=== PATIENT | male | born 1960 | race Caucasian/White ===

== ENCOUNTER 2023-04-21 13:24 | Inpatient (IN) | payer OTHER ==
[2023-04-21] MEDS ORDERED: FOLIC ACID INJECTION - 1 MG, THIAMINE HCL 100 MG, MULTIVIT INJECTION ADULT 10 ML in SOD... IVPB ONE (13:51)
[2023-04-21 13:53] VITALS: BMI 24.0
[2023-04-21] MEDS ORDERED: diazePAM CARPU-JECT 10 MG/2 ML DISP.SYRIN IVPUSH ONE ×2 (14:02→14:54)
[2023-04-21] MEDS ORDERED: FAMOTIDINE 20 MG/50 ML IVPB 20 MG/50 ML MG IVPB ONE ×2 (14:02→14:14)
[2023-04-21] MEDS ORDERED: ONDANSETRON 4 MG/2 ML VIAL IVPUSH ONE (14:02)
[2023-04-21] MEDS ORDERED: SODIUM CHLORIDE 0.9% 500 ML INFUS.BAG IV ONE (14:02)
[2023-04-21] MEDS ORDERED: ACETAMINOPHEN 1000 MG/100 ML BAG IVPB ONE (14:07)
[2023-04-21] MEDS ORDERED: diazePAM CARPU-JECT 10 MG/2 ML DISP.SYRIN ONE ×2 (14:13→14:54)
[2023-04-21] MEDS ORDERED: ACETAMINOPHEN INJECTION 100 ML IVPB ONE (14:14)
[2023-04-21] MEDS ORDERED: ONDANSETRON 4 MG/2 ML VIAL ONE (14:14)
[2023-04-21 14:20] LABS: BASO % 0.6 % (0-2.0); HEMATOCRIT 40.6 % (35.4-49); HEMOGLOBIN 13.6 GM/dL (11.7-16.9); LYMPH % 11.6 % (8-40); MCH 31.7 pg (25.7-33.7); MCHC 33.5 g/dl (32.0-35.9); MEAN CELL VOLUME 94.8 fl (80-96); MEAN PLT VOLUME 10.7 fl (7.5-11.1); MONO % 4.4 % (3.8-10.2); NEUT % 83.4 % (42.8-82.8); PLATELET COUNT 129 10^3/uL (134-434); RBC 4.28 M/mm3 (4.00-5.60); RDW 14.1 % (11.9-15.9); WHITE BLOOD COUNT 8.7 K/mm3 (4.0-10.0)
[2023-04-21 14:27] LABS: INR 1.07 (0.83-1.09); PROTHROMBIN TIME (PATIENT) 12.4 SEC (9.7-13.0)
[2023-04-21 14:30] LABS: ACTIVATED PTT 30.2 SECONDS (25.2-36.5)
[2023-04-21 14:54] LABS: POTASSIUM 3.6 mmol/L (3.5-5.1)
[2023-04-21] MEDS ORDERED: THIAMINE HCL 200 MG/2 ML VIAL IVPB ONE (14:54)
[2023-04-21] MEDS ORDERED: THIAMINE HCL 200 MG/2 ML VIAL ONE (14:55)
[2023-04-21 14:56] LABS: ALBUMIN 3.9 g/dl (3.4-5.0); CALCIUM 9.6 mg/dL (8.5-10.1)
[2023-04-21 14:57] LABS: MAGNESIUM 1.2 mg/dL (1.8-2.4)
[2023-04-21] MEDS ORDERED: MAGNESIUM SULF 50% (8.12 MEQ/2 ML-1 GM VIAL) IVPB ONE ×2 (14:58→20:00)
[2023-04-21 14:59] LABS: CREATININE 0.8 mg/dL (0.55-1.3)
[2023-04-21 15:01] LABS: BILIRUBIN,TOTAL 0.6 mg/dL (0.2-1)
[2023-04-21] MEDS ORDERED: MAGNESIUM SULFATE IN WATER 2 GM/50 ML IVPB IVPB ONE (15:05)
[2023-04-21 15:16] LABS: EPI CELLS 8 /uL (0-25.1); HYALINE CASTS 1 /uL (0-3.1); PH,URINE 7.5 (5.0-8.0); URINE APPEARANCE CLEAR; URINE BACTERIA 3 /uL (0-1359); URINE BILIRUBIN NEGATIVE (NEGATIVE); URINE COLOR DK YELLOW; URINE GLUCOSE (UA) NEGATIVE (NEGATIVE); URINE KETONE 2+ (NEGATIVE); URINE LEUK ESTERASE NEGATIVE (NEGATIVE); URINE NITRITE NEGATIVE (NEGATIVE); URINE PROTEIN 1+ (NEGATIVE); URINE WBC 6 /uL (0-25.8)
[2023-04-21 15:19] LABS: URINE RBC 39.8 /uL (0-23.9)
[2023-04-21] MEDS ORDERED: LORazepam 1 MG TABLET PO PRN (16:55)
[2023-04-21] MEDS ORDERED: ONDANSETRON 4 MG/2 ML VIAL IVPUSH PRN (16:57)
[2023-04-21] MEDS ORDERED: LACTATED RINGERS SOLUTION 1,000 ML IV SCH (17:00)
[2023-04-21] MEDS ORDERED: LORazepam 1 MG TABLET ONE (17:43)
[2023-04-21] MEDS: LORazepam 1 MG TABLET PO SCH ×2 (17:55→23:28)
[2023-04-22] MEDS: LORazepam 1 MG TABLET PO SCH ×2 (05:14→11:30)
[2023-04-22 08:32] LABS: BASO % 0.7 % (0-2.0); EOS % 1.7 % (0-4.5); HEMOGLOBIN 12.9 GM/dL (11.7-16.9); LYMPH % 27.9 % (8-40); MCH 31.7 pg (25.7-33.7); MEAN CELL VOLUME 96.1 fl (80-96); MONO % 5.6 % (3.8-10.2); NEUT % 64.1 % (42.8-82.8); PLATELET COUNT 105 10^3/uL (134-434); RBC 4.06 M/mm3 (4.00-5.60); RDW 14.2 % (11.9-15.9); WHITE BLOOD COUNT 7.4 K/mm3 (4.0-10.0)
[2023-04-22 08:49] LABS: POTASSIUM 3.8 mmol/L (3.5-5.1)
[2023-04-22 08:53] LABS: ALBUMIN 3.1 g/dl (3.4-5.0); BLOOD UREA NITROGEN 10.8 mg/dL (7-18); CALCIUM 8.3 mg/dL (8.5-10.1)
[2023-04-22 08:54] LABS: MAGNESIUM 2.3 mg/dL (1.8-2.4)
[2023-04-22 08:56] LABS: CREATININE 0.7 mg/dL (0.55-1.3); PHOSPHOROUS 2.9 mg/dL (2.5-4.9)
[2023-04-22 08:58] LABS: BILIRUBIN,TOTAL 0.9 mg/dL (0.2-1); TOT PROT 6.8 g/dl (6.4-8.2)
[2023-04-22 09:14] VITALS: TEMP 98.1
[2023-04-22] MEDS ORDERED: THIAMINE HCL 100 MG TABLET (FP) PO SCH (10:00)
[2023-04-22] MEDS ORDERED: FOLIC ACID 1 MG TABLET (FP) PO SCH (10:00)
[2023-04-22] MEDS ORDERED: ENOXAPARIN NA (PORCINE) 40 MG/0.4 ML DISP.SYRIN SQ SCH (10:00)
[2023-04-22 14:30] VITALS: BP 121/83; PULSE 98; RESP 18
[2023-04-23] MEDS ORDERED: LORazepam 1 MG TABLET PO SCH (05:00)
[2023-04-24] MEDS ORDERED: LORazepam 0.5 MG TABLET PO PRN
[2023-04-24] MEDS ORDERED: LORazepam 0.5 MG TABLET PO SCH (05:00)
[2023-04-25] MEDS ORDERED: LORazepam 0.5 MG TABLET PO ONE (05:00)
== END 2023-04-22 14:34 | disposition other institution (70) | DRG 775 ==
LOC: JER 13:24 → JERBED 15:23 → J6S 18:51
PROVIDERS: ADMIT Internal Medicine; ATTEND Internal Medicine
DX: F10.230 Alcohol dependence with withdrawal, uncomplicated (principal); I10 Essential (primary) hypertension; K76.0 Fatty (change of) liver, not elsewhere classified; E83.42 Hypomagnesemia; F17.210 Nicotine dependence, cigarettes, uncomplicated; D69.6 Thrombocytopenia, unspecified
CPT/HCPCS: 0241U-QW; 36415; 71045-TC-FY; 80053; 81003; 82962; 83690; 83735; 84100; 85025; 85610; 85730; 86780; 86850; 86900; 86901; 87086; 93005; 93010; 99285-25; Q0162

== ENCOUNTER 2023-04-22 14:50 | Inpatient (IN) | payer OTHER ==
[2023-04-22 15:17] VITALS: BMI 25.4
[2023-04-22] MEDS ORDERED: MAGNESIUM HYDROX 2400MG/30ML ORAL SUSPENSION 30 ML CUP PO PRN (17:11)
[2023-04-22] MEDS ORDERED: BENZONATATE 200 MG CAPSULE PO PRN (17:11)
[2023-04-22] MEDS ORDERED: guaiFENesin 600 MG TABLET.ER (FP) PO PRN (17:11)
[2023-04-22] MEDS ORDERED: NALOXONE HCL (KLOXXADO) 8 MG SPRAY NS PRN (17:11)
[2023-04-22] MEDS ORDERED: MAG HYDROX/AL HYDROX/SIMETH 30 ML UNIT-DOSE CUP PO PRN (17:11)
[2023-04-22] MEDS ORDERED: IBUPROFEN 400 MG TABLET (FP) PO PRN (17:11)
[2023-04-22] MEDS ORDERED: BENZOCAINE/MENTHOL (CHLORASEPTIC ) LOZENGE MM PRN (17:11)
[2023-04-22] MEDS ORDERED: ONDANSETRON *ODT* 4 MG TABLET SL PRN (17:11)
[2023-04-22] MEDS ORDERED: LOPERAMIDE HCL 2 MG CAPSULE PO PRN (17:11)
[2023-04-22] MEDS ORDERED: POLYETHYLENE GLYCOL (HEALTHYLAX) 3350 17 GM PACKET PO PRN (17:11)
[2023-04-22] MEDS ORDERED: IBUPROFEN 600 MG TABLET (FP) PO PRN (17:11)
[2023-04-22] MEDS ORDERED: ACETAMINOPHEN 325 MG TABLET (FP) PO PRN (17:11)
[2023-04-22] MEDS ORDERED: BISMUTH SUBSALICYLATE 524 MG/30 ML PO PRN (17:11)
[2023-04-22] MEDS ORDERED: DICYCLOMINE HCL 10 MG CAPSULE PO PRN (17:11)
[2023-04-22] MEDS ORDERED: NALOXONE HCL 0.4 MG/ML VIAL IM PRN (17:11)
[2023-04-22] MEDS ORDERED: LORazepam 1 MG TABLET PO PRN (17:11)
[2023-04-22] MEDS ORDERED: NICOTINE 10 MG CARTRIDGE (INHALER) IH PRN (17:11)
[2023-04-22] MEDS: hydrOXYzine PAMOATE 25 MG CAPSULE (FP) PO PRN (17:59)
[2023-04-22] MEDS: METHOCARBAMOL 500 MG TABLET PO PRN (17:59)
[2023-04-22] MEDS: MELATONIN 5 MG TABLETS PO SCH (22:15)
[2023-04-22] MEDS: THIAMINE HCL 100 MG TABLET (FP) PO SCH (22:15)
[2023-04-22] MEDS: LORazepam 2 MG TABLET PO SCH (22:17)
[2023-04-23] MEDS: LORazepam 2 MG TABLET PO SCH ×4 (05:42→22:19)
[2023-04-23] MEDS: PRENATAL VITAMINS W/ FOLIC ACID TABLET (FP) PO SCH (10:13)
[2023-04-23] MEDS: LOSARTAN POTASSIUM 25 MG TABLET PO SCH (10:13)
[2023-04-23] MEDS: amLODIPine BESYLATE 10 MG TABLET (FP) PO SCH (10:13)
[2023-04-23] MEDS: PANTOPRAZOLE 40 MG TABLET PO SCH (10:13)
[2023-04-23] MEDS: hydrOXYzine PAMOATE 25 MG CAPSULE (FP) PO PRN ×2 (10:14→22:19)
[2023-04-23] MEDS: METHOCARBAMOL 500 MG TABLET PO PRN (10:14)
[2023-04-23 10:57] LABS: HEMOGLOBIN 12.2 GM/dL (11.7-16.9); MCH 31.7 pg (25.7-33.7); MEAN PLT VOLUME 11.4 fl (7.5-11.1); PLATELET COUNT 88 10^3/uL (134-434); RBC 3.86 M/mm3 (4.00-5.60); RDW 14.2 % (11.9-15.9)
[2023-04-23 10:58] LABS: POTASSIUM 3.7 mmol/L (3.5-5.1)
[2023-04-23 11:07] LABS: BLOOD UREA NITROGEN 12.3 mg/dL (7-18)
[2023-04-23 11:08] LABS: CALCIUM 8.8 mg/dL (8.5-10.1)
[2023-04-23 11:12] LABS: CREATININE 0.7 mg/dL (0.55-1.3)
[2023-04-23 11:14] LABS: BILIRUBIN,TOTAL 0.4 mg/dL (0.2-1); TOT PROT 6.4 g/dl (6.4-8.2)
[2023-04-23] MEDS: MELATONIN 5 MG TABLETS PO SCH (22:19)
[2023-04-23] MEDS: THIAMINE HCL 100 MG TABLET (FP) PO SCH (22:19)
[2023-04-24] MEDS: LORazepam 1 MG TABLET PO SCH ×4 (05:30→22:56)
[2023-04-24] MEDS: PANTOPRAZOLE 40 MG TABLET PO SCH (10:22)
[2023-04-24] MEDS: amLODIPine BESYLATE 10 MG TABLET (FP) PO SCH (10:23)
[2023-04-24] MEDS: LOSARTAN POTASSIUM 25 MG TABLET PO SCH (10:23)
[2023-04-24] MEDS: PRENATAL VITAMINS W/ FOLIC ACID TABLET (FP) PO SCH (10:23)
[2023-04-24] MEDS: METHOCARBAMOL 500 MG TABLET PO PRN (22:56)
[2023-04-24] MEDS: THIAMINE HCL 100 MG TABLET (FP) PO SCH (22:56)
[2023-04-24] MEDS: MELATONIN 5 MG TABLETS PO SCH (22:56)
[2023-04-25] MEDS ORDERED: LORazepam 0.5 MG TABLET PO PRN
[2023-04-25] MEDS: LORazepam 0.5 MG TABLET PO SCH ×4 (05:57→22:09)
[2023-04-25] MEDS: amLODIPine BESYLATE 10 MG TABLET (FP) PO SCH (10:51)
[2023-04-25] MEDS: PRENATAL VITAMINS W/ FOLIC ACID TABLET (FP) PO SCH (10:51)
[2023-04-25] MEDS: PANTOPRAZOLE 40 MG TABLET PO SCH (10:51)
[2023-04-25] MEDS: LOSARTAN POTASSIUM 25 MG TABLET PO SCH (10:52)
[2023-04-25] MEDS: LACTULOSE 20 GM/30 ML UDC (FOR ORAL USE ONLY) PO SCH ×3 (14:00→22:09)
[2023-04-25] MEDS: THIAMINE HCL 100 MG TABLET (FP) PO SCH (22:09)
[2023-04-25] MEDS: MELATONIN 5 MG TABLETS PO SCH (22:09)
[2023-04-26] MEDS ORDERED: LORazepam 0.5 MG TABLET PO ONE (05:00)
[2023-04-26 09:58] VITALS: BP 110/69; PULSE 90; RESP 18; TEMP 97.7
== END 2023-04-26 11:27 | disposition home or self-care (01) | DRG 775 ==
LOC: YASAS 14:50 → Y6N 15:48
PROVIDERS: ADMIT Allergy & Immunology; ATTEND Surgery
PROC: HZ2ZZZZ Detoxification Services for Substance Abuse Treatment (ICD-10-PCS; principal; 2023-04-22)
DX: F10.230 Alcohol dependence with withdrawal, uncomplicated (principal); F17.200 Nicotine dependence, unspecified, uncomplicated; F41.9 Anxiety disorder, unspecified; I10 Essential (primary) hypertension; K70.0 Alcoholic fatty liver; K21.9 Gastro-esophageal reflux disease without esophagitis; R79.89 Other specified abnormal findings of blood chemistry; R76.11 Nonspecific reaction to tuberculin skin test without active tuberculosis; Z28.310 Unvaccinated for COVID-19; Z28.9 Immunization not carried out for unspecified reason
CPT/HCPCS: 36415; 80053; 82140; 85027; 86780; 87635

== ENCOUNTER 2023-09-15 14:54 | Inpatient (IN) | payer OTHER ==
[2023-09-15 15:47] VITALS: BMI 25.0
[2023-09-15] MEDS ORDERED: TRIMETHOBENZAMIDE HCL 200MG/2ML INJ IM ONE ×2 (18:08→18:31)
[2023-09-15] MEDS ORDERED: LOPERAMIDE HCL 2 MG CAPSULE PO PRN (18:22)
[2023-09-15] MEDS ORDERED: ONDANSETRON *ODT* 4 MG TABLET SL PRN (18:22)
[2023-09-15] MEDS ORDERED: MAG HYDROX/AL HYDROX/SIMETH 30 ML UNIT-DOSE CUP PO PRN (18:22)
[2023-09-15] MEDS ORDERED: chlordiazePOXIDE HCL 25 MG CAPSULE PO PRN (18:22)
[2023-09-15] MEDS ORDERED: BISMUTH SUBSALICYLATE 524 MG/30 ML PO PRN (18:22)
[2023-09-15] MEDS ORDERED: guaiFENesin 600 MG TABLET.ER (FP) PO PRN (18:22)
[2023-09-15] MEDS ORDERED: DICYCLOMINE HCL 10 MG CAPSULE PO PRN (18:22)
[2023-09-15] MEDS ORDERED: ACETAMINOPHEN 325 MG TABLET (FP) PO PRN (18:22)
[2023-09-15] MEDS ORDERED: IBUPROFEN 400 MG TABLET (FP) PO PRN (18:22)
[2023-09-15] MEDS ORDERED: MAGNESIUM HYDROX 2400MG/30ML ORAL SUSPENSION 30 ML CUP PO PRN (18:22)
[2023-09-15] MEDS ORDERED: BENZONATATE 200 MG CAPSULE PO PRN (18:22)
[2023-09-15] MEDS ORDERED: POLYETHYLENE GLYCOL (HEALTHYLAX) 3350 17 GM PACKET PO PRN (18:22)
[2023-09-15] MEDS ORDERED: P-EPHED 60MG/TRIPROLIDI 2.5MG TABLET PO PRN (18:22)
[2023-09-15] MEDS ORDERED: BENZOCAINE/MENTHOL (CHLORASEPTIC ) LOZENGE MM PRN (18:22)
[2023-09-15] MEDS ORDERED: METOPROLOL TARTRATE 50 MG TABLET (FP) PO ONE (18:24)
[2023-09-15] MEDS ORDERED: METOPROLOL TARTRATE 25 MG TABLET (FP) PO ONE (18:24)
[2023-09-15] MEDS ORDERED: LORazepam 2 MG/ML SDV VIAL IM ONE (18:45)
[2023-09-15] MEDS ORDERED: METOPROLOL TARTRATE 25 MG TABLET (FP) ONE (18:54)
[2023-09-15] MEDS: chlordiazePOXIDE HCL 25 MG CAPSULE PO SCH (22:35)
[2023-09-15] MEDS: MELATONIN 5 MG TABLETS PO SCH (22:35)
[2023-09-15] MEDS: THIAMINE HCL 100 MG TABLET (FP) PO SCH (22:35)
[2023-09-16] MEDS: chlordiazePOXIDE HCL 25 MG CAPSULE PO SCH ×4 (05:28→22:05)
[2023-09-16 10:22] LABS: HEMATOCRIT 36.7 % (35.4-49); HEMOGLOBIN 12.4 GM/dL (11.7-16.9); MCH 32.6 pg (25.7-33.7); MCHC 33.8 g/dl (32.0-35.9); MEAN CELL VOLUME 96.3 fl (80-96); PLATELET COUNT 187 10^3/uL (134-434); RBC 3.81 M/mm3 (4.00-5.60); RDW 16.2 % (11.9-15.9); WHITE BLOOD COUNT 5.2 K/mm3 (4.0-10.0)
[2023-09-16] MEDS: PRENATAL VITAMINS W/ FOLIC ACID TABLET (FP) PO SCH (10:25)
[2023-09-16 11:02] LABS: BLOOD UREA NITROGEN 9.7 mg/dL (7-18); CALCIUM 8.9 mg/dL (8.5-10.1); CHLORIDE 107 mmol/L (98-107); CO2 19 mmol/L (21-32); CREATININE 0.4 mg/dL (0.55-1.3); GLUCOSE,RANDOM 72 mg/dL (74-106); SODIUM 138 mmol/L (136-145)
[2023-09-16 11:11] LABS: ALBUMIN 3.1 g/dl (3.4-5.0)
[2023-09-16 11:20] LABS: ALK PHOS 52 U/L (45-117); BILIRUBIN,TOTAL 0.5 mg/dL (0.2-1); SGOT/AST 68 U/L (15-37); SGPT/ALT 85 U/L (13-61); TOT PROT 6.6 g/dl (6.4-8.2)
[2023-09-16] MEDS: THIAMINE HCL 100 MG TABLET (FP) PO SCH (22:05)
[2023-09-16] MEDS: MELATONIN 5 MG TABLETS PO SCH (22:06)
[2023-09-17] MEDS: chlordiazePOXIDE HCL 25 MG CAPSULE PO SCH ×4 (05:31→22:07)
[2023-09-17] MEDS: FAMOTIDINE 20 MG TABLET PO SCH (10:33)
[2023-09-17] MEDS: PRENATAL VITAMINS W/ FOLIC ACID TABLET (FP) PO SCH (10:33)
[2023-09-17] MEDS: LOSARTAN POTASSIUM 25 MG TABLET PO SCH (10:33)
[2023-09-17] MEDS: amLODIPine BESYLATE 10 MG TABLET (FP) PO SCH (10:33)
[2023-09-17] MEDS: THIAMINE HCL 100 MG TABLET (FP) PO SCH (22:07)
[2023-09-17] MEDS: MELATONIN 5 MG TABLETS PO SCH (22:07)
[2023-09-18] MEDS ORDERED: chlordiazePOXIDE HCL 10 MG CAPSULE PO PRN
[2023-09-18] MEDS: chlordiazePOXIDE HCL 10 MG CAPSULE PO SCH ×4 (05:57→22:00)
[2023-09-18] MEDS: FAMOTIDINE 20 MG TABLET PO SCH (10:25)
[2023-09-18] MEDS: PRENATAL VITAMINS W/ FOLIC ACID TABLET (FP) PO SCH (10:25)
[2023-09-18] MEDS: amLODIPine BESYLATE 10 MG TABLET (FP) PO SCH (10:25)
[2023-09-18] MEDS: LOSARTAN POTASSIUM 25 MG TABLET PO SCH (10:27)
[2023-09-18] MEDS: MELATONIN 5 MG TABLETS PO SCH (21:59)
[2023-09-18] MEDS: THIAMINE HCL 100 MG TABLET (FP) PO SCH (22:00)
[2023-09-18] MEDS: METHOCARBAMOL 500 MG TABLET PO PRN (22:02)
[2023-09-19] MEDS: chlordiazePOXIDE HCL 10 MG CAPSULE PO SCH ×2 (05:14→17:38)
[2023-09-19] MEDS: PRENATAL VITAMINS W/ FOLIC ACID TABLET (FP) PO SCH (10:26)
[2023-09-19] MEDS: amLODIPine BESYLATE 10 MG TABLET (FP) PO SCH (10:26)
[2023-09-19] MEDS: LOSARTAN POTASSIUM 25 MG TABLET PO SCH (10:26)
[2023-09-19] MEDS: FAMOTIDINE 20 MG TABLET PO SCH (10:26)
[2023-09-19] MEDS: THIAMINE HCL 100 MG TABLET (FP) PO SCH (21:13)
[2023-09-19] MEDS: MELATONIN 5 MG TABLETS PO SCH (21:13)
[2023-09-19] MEDS: METHOCARBAMOL 500 MG TABLET PO PRN (21:13)
[2023-09-20] MEDS ORDERED: chlordiazePOXIDE HCL 10 MG CAPSULE PO ONE (05:00)
[2023-09-20 09:17] VITALS: BP 111/71; PULSE 75; RESP 16; TEMP 98.3
[2023-09-20] MEDS: LOSARTAN POTASSIUM 25 MG TABLET PO SCH (09:29)
[2023-09-20] MEDS: FAMOTIDINE 20 MG TABLET PO SCH (09:29)
[2023-09-20] MEDS: amLODIPine BESYLATE 10 MG TABLET (FP) PO SCH (09:29)
[2023-09-20] MEDS: PRENATAL VITAMINS W/ FOLIC ACID TABLET (FP) PO SCH (09:30)
[2023-09-20 10:43] LABS: POTASSIUM 4.6 mmol/L (3.5-5.1)
[2023-09-20 10:45] LABS: CALCIUM 8.8 mg/dL (8.5-10.1)
[2023-09-20 10:46] LABS: BASO % 0.7 % (0-2.0); BLOOD UREA NITROGEN 18.7 mg/dL (7-18); HEMATOCRIT 36.8 % (35.4-49); HEMOGLOBIN 12.1 GM/dL (11.7-16.9); LYMPH % 29.6 % (8-40); MCH 32.5 pg (25.7-33.7); MEAN CELL VOLUME 98.5 fl (80-96); MEAN PLT VOLUME 10.4 fl (7.5-11.1); MONO % 11.7 % (3.8-10.2); PLATELET COUNT 185 10^3/uL (134-434); RBC 3.74 M/mm3 (4.00-5.60); RDW 15.9 % (11.9-15.9); WHITE BLOOD COUNT 6.9 K/mm3 (4.0-10.0)
[2023-09-20 10:49] LABS: CREATININE 0.8 mg/dL (0.55-1.3)
== END 2023-09-20 11:02 | disposition other institution (70) | DRG 775 ==
LOC: YASAS 14:54 → Y3N 19:34
PROVIDERS: ADMIT Allergy & Immunology; ATTEND Surgery
PROC: HZ2ZZZZ Detoxification Services for Substance Abuse Treatment (ICD-10-PCS; principal; 2023-09-15)
DX: F10.230 Alcohol dependence with withdrawal, uncomplicated (principal); F17.210 Nicotine dependence, cigarettes, uncomplicated; I10 Essential (primary) hypertension; K21.9 Gastro-esophageal reflux disease without esophagitis; R74.01 Elevation of levels of liver transaminase levels; Z87.19 Personal history of other diseases of the digestive system; Z28.310 Unvaccinated for COVID-19; Z28.9 Immunization not carried out for unspecified reason
CPT/HCPCS: 36415; 80048; 80053; 80307; 85025; 85027; 86780; 87635

== ENCOUNTER 2024-02-29 12:55 | Inpatient (IN) | payer OTHER ==
[2024-02-29 14:34] VITALS: BMI 25.7
[2024-02-29] MEDS ORDERED: POLYETHYLENE GLYCOL (HEALTHYLAX) 3350 17 GM PACKET PO PRN (15:41)
[2024-02-29] MEDS ORDERED: IBUPROFEN 400 MG TABLET (FP) PO PRN (15:41)
[2024-02-29] MEDS ORDERED: BISMUTH SUBSALICYLATE 262 MG/15 ML BTL PO PRN (15:41)
[2024-02-29] MEDS ORDERED: MAGNESIUM HYDROX 2400MG/30ML ORAL SUSPENSION 30 ML CUP PO PRN (15:41)
[2024-02-29] MEDS ORDERED: LOPERAMIDE HCL 2 MG CAPSULE PO PRN (15:41)
[2024-02-29] MEDS ORDERED: guaiFENesin 600 MG TABLET.ER (FP) PO PRN (15:41)
[2024-02-29] MEDS ORDERED: IBUPROFEN 600 MG TABLET (FP) PO PRN (15:41)
[2024-02-29] MEDS ORDERED: NALOXONE HCL 0.4 MG/ML VIAL IM PRN (15:41)
[2024-02-29] MEDS ORDERED: DICYCLOMINE HCL 10 MG CAPSULE PO PRN (15:41)
[2024-02-29] MEDS ORDERED: MAG HYDROX/AL HYDROX/SIMETH 30 ML UNIT-DOSE CUP PO PRN (15:41)
[2024-02-29] MEDS ORDERED: NALOXONE HCL (KLOXXADO) 8 MG SPRAY NS PRN (15:41)
[2024-02-29] MEDS ORDERED: ACETAMINOPHEN 325 MG TABLET (FP) PO PRN (15:41)
[2024-02-29] MEDS ORDERED: hydrOXYzine PAMOATE 25 MG CAPSULE (FP) PO PRN (15:41)
[2024-02-29] MEDS ORDERED: BENZOCAINE/MENTHOL (CHLORASEPTIC ) LOZENGE MM PRN (15:41)
[2024-02-29] MEDS ORDERED: ONDANSETRON *ODT* 4 MG TABLET SL PRN (15:41)
[2024-02-29] MEDS ORDERED: BENZONATATE 200 MG CAPSULE PO PRN (15:41)
[2024-02-29] MEDS: LORazepam 2 MG TABLET PO SCH (18:16)
[2024-02-29] MEDS: LORazepam 1 MG TABLET PO PRN (18:16)
[2024-02-29] MEDS: PRENATAL VITAMINS W/ FOLIC ACID TABLET (FP) PO SCH (18:16)
[2024-02-29] MEDS: THIAMINE 100 MG TABLET PO SCH (22:09)
[2024-02-29] MEDS: MELATONIN 5 MG TABLETS PO SCH (22:09)
[2024-02-29] MEDS: amLODIPine BESYLATE 10 MG TABLET (FP) PO SCH (22:40)
[2024-03-01] MEDS: FAMOTIDINE 20 MG TABLET PO SCH (10:07)
[2024-03-01] MEDS: LOSARTAN POTASSIUM 25 MG TABLET PO SCH (10:09)
[2024-03-01 11:51] LABS: CHLORIDE 101 mmol/L (98-107); POTASSIUM 3.9 mmol/L (3.5-5.1); SODIUM 137 mmol/L (136-145)
[2024-03-01 11:54] LABS: ALBUMIN 3.5 g/dl (3.4-5.0); ANION GAP 8 mmol/L (4-13); BLOOD UREA NITROGEN 20.1 mg/dL (7-18); CALCIUM 9.2 mg/dL (8.5-10.1); CO2 28 mmol/L (21-32); GLUCOSE,RANDOM 98 mg/dL (74-106)
[2024-03-01 11:57] LABS: CREATININE 0.8 mg/dL (0.55-1.3); HEMATOCRIT 41.4 % (35.4-49); HEMOGLOBIN 14.1 GM/dL (11.7-16.9); MCH 31.7 pg (25.7-33.7); MEAN CELL VOLUME 93.1 fl (80-96); MEAN PLT VOLUME 10.5 fl (7.5-11.1); PLATELET COUNT 146 10^3/uL (134-434); RBC 4.44 M/mm3 (4.00-5.60); RDW 15.3 % (11.9-15.9); SGOT/AST 63 U/L (15-37); SGPT/ALT 45 U/L (13-61); WHITE BLOOD COUNT 6.4 K/mm3 (4.0-10.0)
[2024-03-01 11:59] LABS: BILIRUBIN,TOTAL 1.1 mg/dL (0.2-1); TOT PROT 7.6 g/dl (6.4-8.2)
[2024-03-01 12:00] LABS: ALK PHOS 66 U/L (45-117)
[2024-03-01 12:57] LABS: HIV INTERPRETATION NEGATIVE (NEGATIVE)
[2024-03-01] MEDS: traZODone HCL 50 MG TABLET (FP) PO SCH (22:27)
[2024-03-02] MEDS: LORazepam 1 MG TABLET PO SCH (05:07)
[2024-03-02] MEDS: LACTULOSE 20 GM/30 ML UDC (FOR ORAL USE ONLY) PO SCH (13:46)
[2024-03-03] MEDS ORDERED: LORazepam 0.5 MG TABLET PO PRN
[2024-03-03] MEDS: LORazepam 0.5 MG TABLET PO SCH (05:27)
[2024-03-03] MEDS: METHOCARBAMOL 500 MG TABLET PO PRN (22:25)
[2024-03-04] MEDS: LORazepam 0.5 MG TABLET PO ONE (05:35)
[2024-03-04 09:08] VITALS: BP 127/90; PULSE 109; RESP 16; TEMP 97.6
== END 2024-03-04 09:46 | disposition home or self-care (01) | DRG 775 ==
LOC: YASAS 12:55 → Y6N 15:46
PROVIDERS: ADMIT Allergy & Immunology; ATTEND Surgery
PROC: HZ2ZZZZ Detoxification Services for Substance Abuse Treatment (ICD-10-PCS; principal; 2024-02-29)
DX: F10.230 Alcohol dependence with withdrawal, uncomplicated (principal); F17.220 Nicotine dependence, chewing tobacco, uncomplicated; F10.24 Alcohol dependence with alcohol-induced mood disorder; F41.9 Anxiety disorder, unspecified; E72.20 Disorder of urea cycle metabolism, unspecified; E86.0 Dehydration; I10 Essential (primary) hypertension; K21.9 Gastro-esophageal reflux disease without esophagitis; K70.0 Alcoholic fatty liver; Z86.59 Personal history of other mental and behavioral disorders; Z28.310 Unvaccinated for COVID-19; Z28.9 Immunization not carried out for unspecified reason
CPT/HCPCS: 36415; 80053; 80305; 80307; 82140; 85027; 86780; 87389; 93005; 93010

== ENCOUNTER 2024-09-13 20:20 | Inpatient (IN) | payer OTHER ==
[2024-09-13 22:40] VITALS: BMI 26.4
[2024-09-13] MEDS ORDERED: ACETAMINOPHEN 325 MG TABLET (FP) PO PRN (23:02)
[2024-09-13] MEDS ORDERED: BENZONATATE 200 MG CAPSULE PO PRN (23:02)
[2024-09-13] MEDS ORDERED: DICYCLOMINE HCL 10 MG CAPSULE PO PRN (23:02)
[2024-09-13] MEDS ORDERED: IBUPROFEN 600 MG TABLET (FP) PO PRN (23:02)
[2024-09-13] MEDS ORDERED: BENZOCAINE/MENTHOL (CHLORASEPTIC ) LOZENGE MM PRN (23:02)
[2024-09-13] MEDS ORDERED: guaiFENesin 600 MG TABLET.ER (FP) PO PRN (23:02)
[2024-09-13] MEDS ORDERED: LOPERAMIDE HCL 2 MG CAPSULE PO PRN (23:02)
[2024-09-13] MEDS ORDERED: MAGNESIUM HYDROX 2400MG/30ML ORAL SUSPENSION 30 ML CUP PO PRN (23:02)
[2024-09-13] MEDS ORDERED: POLYETHYLENE GLYCOL (HEALTHYLAX) 3350 17 GM PACKET PO PRN (23:02)
[2024-09-13] MEDS ORDERED: MAG HYDROX/AL HYDROX/SIMETH 30 ML UNIT-DOSE CUP PO PRN (23:02)
[2024-09-13] MEDS ORDERED: ONDANSETRON *ODT* 4 MG TABLET SL PRN (23:02)
[2024-09-13] MEDS ORDERED: IBUPROFEN 400 MG TABLET (FP) PO PRN (23:02)
[2024-09-13] MEDS ORDERED: diazePAM 5 MG TABLET ONE (23:39)
[2024-09-13] MEDS: diazePAM 5 MG TABLET PO SCH (23:41)
[2024-09-14] MEDS: FAMOTIDINE 20 MG TABLET PO SCH (07:41)
[2024-09-14] MEDS: FOLIC ACID 1 MG TABLET (FP) PO SCH (10:31)
[2024-09-14] MEDS: PRENATAL VITAMINS W/ FOLIC ACID TABLET (FP) PO SCH (10:31)
[2024-09-14 12:51] LABS: HEMATOCRIT 39.8 % (35.4-49); HEMOGLOBIN 13.9 GM/dL (11.7-16.9); MCH 32.3 pg (25.7-33.7); MCHC 34.8 g/dl (32.0-35.9); MEAN CELL VOLUME 92.9 fl (80-96); MEAN PLT VOLUME 10.3 fl (7.5-11.1); PLATELET COUNT 155 10^3/uL (134-434); RBC 4.28 M/mm3 (4.00-5.60); RDW 14.2 % (11.9-15.9); WHITE BLOOD COUNT 5.4 K/mm3 (4.0-10.0)
[2024-09-14 13:01] LABS: POTASSIUM 3.2 mmol/L (3.5-5.1)
[2024-09-14 13:42] LABS: BLOOD UREA NITROGEN 7.2 mg/dL (7-18)
[2024-09-14 13:44] LABS: BILIRUBIN,TOTAL 0.9 mg/dL (0.2-1); TOT PROT 7.3 g/dl (6.4-8.2)
[2024-09-14 13:46] LABS: CALCIUM 9.7 mg/dL (8.5-10.1)
[2024-09-14 13:47] LABS: ALBUMIN 3.7 g/dl (3.4-5.0)
[2024-09-14 13:48] LABS: CREATININE 0.9 mg/dL (0.55-1.3)
[2024-09-14] MEDS: POTASSIUM CHLORIDE ORAL LIQUID 20 MEQ/15 ML PO SCH (15:06)
[2024-09-14] MEDS: THIAMINE 100 MG TABLET PO SCH (22:48)
[2024-09-14] MEDS: METHOCARBAMOL 500 MG TABLET PO PRN (22:48)
[2024-09-14] MEDS: MELATONIN 5 MG TABLETS PO SCH (22:48)
[2024-09-14] MEDS: ATORVASTATIN CA 20 MG TABLET (FP) PO SCH (22:48)
[2024-09-15] MEDS: diazePAM 5 MG TABLET PO SCH (05:32)
[2024-09-15] MEDS: diazePAM 5 MG TABLET PO PRN (20:10)
[2024-09-16] MEDS: diazePAM 5 MG TABLET PO SCH (06:10)
[2024-09-16] MEDS: BISMUTH SUBSALICYLATE 524 MG/30 ML PO PRN (22:38)
[2024-09-17] MEDS: diazePAM 5 MG TABLET PO ONE (05:27)
[2024-09-17 09:08] VITALS: BP 132/95; PULSE 99; RESP 18; TEMP 98.1
== END 2024-09-17 11:09 | disposition other institution (70) | DRG 775 ==
LOC: YASAS 20:20 → Y6N 23:15
PROVIDERS: ADMIT Allergy & Immunology; ATTEND Surgery
PROC: HZ2ZZZZ Detoxification Services for Substance Abuse Treatment (ICD-10-PCS; principal; 2024-09-13)
DX: F10.230 Alcohol dependence with withdrawal, uncomplicated (principal); F10.282 Alcohol dependence with alcohol-induced sleep disorder; F10.24 Alcohol dependence with alcohol-induced mood disorder; F41.9 Anxiety disorder, unspecified; E87.6 Hypokalemia; E78.2 Mixed hyperlipidemia; I10 Essential (primary) hypertension; K21.9 Gastro-esophageal reflux disease without esophagitis
CPT/HCPCS: 36415; 80053; 80305; 80307; 83036; 84132; 85027

== ENCOUNTER 2025-01-10 13:51 | Inpatient (IN) | payer OTHER ==
[2025-01-10] MEDS ORDERED: chlordiazePOXIDE HCL 25 MG CAPSULE PO PRN (14:17)
[2025-01-10 14:18] VITALS: BMI 22.3
[2025-01-10] MEDS ORDERED: DICYCLOMINE HCL 10 MG CAPSULE PO PRN (14:24)
[2025-01-10] MEDS ORDERED: LOPERAMIDE HCL 2 MG CAPSULE PO PRN (14:24)
[2025-01-10] MEDS ORDERED: BENZONATATE 200 MG CAPSULE PO PRN (14:24)
[2025-01-10] MEDS ORDERED: MAGNESIUM HYDROX 2400MG/30ML ORAL SUSPENSION 30 ML CUP PO PRN (14:24)
[2025-01-10] MEDS ORDERED: guaiFENesin 600 MG TABLET.ER (FP) PO PRN (14:24)
[2025-01-10] MEDS ORDERED: NALOXONE (NARCAN) HCL 4 MG/0.1 ML SPRAY NS PRN (14:24)
[2025-01-10] MEDS ORDERED: IBUPROFEN 600 MG TABLET (FP) PO PRN (14:24)
[2025-01-10] MEDS ORDERED: MAG HYDROX/AL HYDROX/SIMETH 30 ML UNIT-DOSE CUP PO PRN (14:24)
[2025-01-10] MEDS ORDERED: BISMUTH SUBSALICYLATE 262 MG/15 ML BTL PO PRN (14:24)
[2025-01-10] MEDS ORDERED: ACETAMINOPHEN 325 MG TABLET (FP) PO PRN (14:24)
[2025-01-10] MEDS ORDERED: BENZOCAINE/MENTHOL (CHLORASEPTIC ) LOZENGE MM PRN (14:24)
[2025-01-10] MEDS ORDERED: IBUPROFEN 400 MG TABLET (FP) PO PRN (14:24)
[2025-01-10] MEDS ORDERED: POLYETHYLENE GLYCOL (HEALTHYLAX) 3350 17 GM PACKET PO PRN (14:24)
[2025-01-10] MEDS ORDERED: chlordiazePOXIDE HCL 25 MG CAPSULE ONE ×2 (14:26→17:37)
[2025-01-10] MEDS: propRANOLol HCL 10 MG TABLET PO ONE (14:27)
[2025-01-10] MEDS: chlordiazePOXIDE HCL 25 MG CAPSULE PO ONE (14:27)
[2025-01-10] MEDS ORDERED: propRANOLol HCL 10 MG TABLET ONE (14:27)
[2025-01-10] MEDS: chlordiazePOXIDE HCL 25 MG CAPSULE PO SCH (17:39)
[2025-01-10] MEDS: MELATONIN 5 MG TABLETS PO SCH (22:32)
[2025-01-10] MEDS: THIAMINE 100 MG TABLET PO SCH (22:32)
[2025-01-11] MEDS: PRENATAL VITAMINS W/ FOLIC ACID TABLET (FP) PO SCH (10:05)
[2025-01-11 16:58] LABS: HEMATOCRIT 35.1 % (35.4-49); HEMOGLOBIN 11.7 GM/dL (11.7-16.9); MCH 31.9 pg (25.7-33.7); MCHC 33.3 g/dl (32.0-35.9); MEAN CELL VOLUME 95.9 fl (80-96); MEAN PLT VOLUME 10.8 fl (7.5-11.1); PLATELET COUNT 112 10^3/uL (134-434); RBC 3.66 M/mm3 (4.00-5.60); RDW 17.8 % (11.9-15.9); WHITE BLOOD COUNT 5.3 K/mm3 (4.0-10.0)
[2025-01-11 17:06] LABS: POTASSIUM 3.7 mmol/L (3.5-5.1)
[2025-01-11 17:17] LABS: ALBUMIN 3.3 g/dl (3.4-5.0); BLOOD UREA NITROGEN 17.1 mg/dL (7-18); CALCIUM 9.5 mg/dL (8.5-10.1); CREATININE 0.9 mg/dL (0.55-1.3)
[2025-01-11 17:20] LABS: BILIRUBIN,TOTAL 0.6 mg/dL (0.2-1)
[2025-01-11 17:21] LABS: TOT PROT 6.5 g/dl (6.4-8.2)
[2025-01-12] MEDS: chlordiazePOXIDE HCL 25 MG CAPSULE PO SCH (06:00)
[2025-01-12] MEDS: FAMOTIDINE 20 MG TABLET PO SCH (10:05)
[2025-01-13] MEDS ORDERED: chlordiazePOXIDE HCL 10 MG CAPSULE PO PRN
[2025-01-13] MEDS: chlordiazePOXIDE HCL 10 MG CAPSULE PO SCH (05:59)
[2025-01-14] MEDS: chlordiazePOXIDE HCL 10 MG CAPSULE PO SCH (06:14)
[2025-01-14] MEDS: ONDANSETRON *ODT* 4 MG TABLET SL PRN (14:14)
[2025-01-14] MEDS ORDERED: propRANOLol HCL 10 MG TABLET PO ONE (17:42)
[2025-01-14] MEDS: propRANOLol HCL 10 MG TABLET PO ONE (22:43)
[2025-01-15] MEDS: chlordiazePOXIDE HCL 10 MG CAPSULE PO ONE (06:00)
[2025-01-15 07:02] VITALS: RESP 16
[2025-01-15 09:07] VITALS: BP 129/87; PULSE 76; TEMP 97.7
== END 2025-01-15 11:17 | disposition home or self-care (01) | DRG 775 ==
LOC: YASAS 13:51 → Y6N 17:08
PROVIDERS: ADMIT Allergy & Immunology; ATTEND Allergy & Immunology
PROC: HZ2ZZZZ Detoxification Services for Substance Abuse Treatment (ICD-10-PCS; principal; 2025-01-10)
DX: F10.230 Alcohol dependence with withdrawal, uncomplicated (principal); F41.9 Anxiety disorder, unspecified; I10 Essential (primary) hypertension; K21.9 Gastro-esophageal reflux disease without esophagitis; K76.0 Fatty (change of) liver, not elsewhere classified; R53.1 Weakness; R26.89 Other abnormalities of gait and mobility
CPT/HCPCS: 36415; 71045-TC-FY; 80053; 80305; 80307; 85027; 86780; 93005; 93010; Q0162